=== PATIENT | male | born 1975 | race Caucasian/White ===

== ENCOUNTER 2021-03-28 06:37 | Emergency (ER) | payer OTHER, BC | END 2021-03-28 08:10 | disposition home or self-care (01) | LOC: JD.ED 06:37 | DX: S16.1XXA Strain of muscle, fascia and tendon at neck level, initial encounter (principal); Z88.1 Allergy status to other antibiotic agents; Z88.5 Allergy status to narcotic agent; Z88.0 Allergy status to penicillin; Z79.899 Other long term (current) drug therapy; V50.5XXA Driver of pick-up truck or van injured in collision with pedestrian or animal in traffic accident, initial encounter | CPT/HCPCS: 70450; 70450-26; 72125; 72125-26; 99284-25 ==